=== PATIENT | female | born 1985 | race Caucasian/White ===

== ENCOUNTER 2023-07-26 17:52 | Observation (INO) | payer SELFPAY ==
[2023-07-26] VITALS (13 sets, daily range): BP systolic 103–149; BP diastolic 69–86; PULSE 77–107; RESP 16–19; TEMP 36.4–36.8; O2SAT 96–100; BMI 40.3; BMI 35.5
--- NOTE | 2023-07-26 18:48 | USR_ITS ---
PROCEDURE INFORMATION: Exam: US Pelvis, Transvaginal Exam date and time: 07/26/2023 7:03 PM Age: 37 years old Clinical indication: Other: Bleeding; Additional info: Vaginal bleeding TECHNIQUE: Imaging protocol: Real-time transvaginal pelvic ultrasound with image documentation. Transvaginal imaging was used for better evaluation of the endometrium, adnexa, and/or cervix. COMPARISON: No relevant prior studies available. FINDINGS: Uterus: Uterus measures 9.58 cm x 5.71 cm x 5.33 cm. Endometrial stripe prominent at 12 mm, may be related to menstrual status. Cervix: Cervical nabothian cysts. Right ovary/adnexa: Right ovary 18 mm cyst, likely follicular in nature with color blood flow in the right ovary. Left ovary/adnexa: Left ovary prominent 6 mm cyst, likely follicular in nature with color blood flow in the left ovary. Intraperitoneal space: No free fluid. US/US transvaginal [id number] IMPRESSION: 1. Right ovary 18 mm cyst, likely follicular in nature with color blood flow in the right ovary. 2. Left ovary prominent 6 mm cyst, likely follicular in nature with color blood flow in the left ovary. 3. Endometrial stripe prominent at 12 mm, may be related to menstrual status. 4. Cervical nabothian cysts.
[2023-07-26 18:53] LABS: Basophils # 0.1 10^3/uL (0.0-0.1); Basophils % 0.7 %; Eosinophils # 0.2 10^3/uL (0.0-0.8); Eosinophils % 1.9 %; Hematocrit 22.2 % (36-47); Lymphocytes # 3.1 10^3/uL (0.8-4.8); Lymphocytes % 28.1 %; Mean Corpuscular HGB Conc 32.4 g/dL (30-55); Mean Corpuscular Hemoglobin 28.9 pg (27-33); Mean Corpuscular Volume 89.2 fl (85-98); Mean Platelet Volume 10.8 fL (7.4-10.4); Monocytes # 0.6 10^3/uL (0.2-0.9); Monocytes % 5.1 %; Neutrophils # 7.05 10^3/uL (1.8-7.7); Neutrophils % 63.7 %; Nucleated Red Blood Cells % 0.2 %; Platelet Count 466 10^3/cmm (157-399); Red Blood Count 2.49 10^6/uL (3.85-5.65); Red Cell Distribution Width 13.2 % (12.1-15.1); White Blood Count 11.07 10^3/uL (3.29-11.43)
[2023-07-26] MEDS: sodium chloride 0.9% 1,000 ML 999 ML IV (19:18)
[2023-07-26 19:19] LABS: INR 0.94 (0.8-1.2)
[2023-07-26 19:20] LABS: HCG, Serum Qual Negative (Negative)
[2023-07-26 19:29] LABS: Alanine Aminotransferase 21 U/L (0-33); Albumin Level 3.9 g/dL (3.5-5.2); Alkaline Phosphatase 136 U/L (35-105); Anion Gap 9.5 (5-19); Aspartate Amino Transferase 22 U/L (0-32); Blood Urea Nitrogen 10 mg/dL (6-20); Calcium 9.6 mg/dL (8.5-10.5); Carbon Dioxide 27 mmol/L (22-29); Chloride 104 mmol/L (98-107); Creatinine Clr Calc Pharmacy 108.2937; Globulin 3.1 g/dL (1.3-4.6); Glomerular Filtration Rate 70.1 mL/min (90-130); Glucose 85 mg/dL (65-115); Osmolality Calculated 282 mOsm/kg (285-295); Potassium 3.5 mmol/L (3.5-5.1); Sodium 137 mmol/L (136-145); Total Bilirubin 0.3 mg/dL (0.15-1.2)
--- NOTE | 2023-07-26 19:44 | W.ED.FEMALGU ---
HPI - Female Genitourinary General: Chief complaint: Vaginal Bleeding Stated complaint: sent from [facility] Time Seen by Provider: 07/26/23 18:28 History of Present Illness: 37-year-old female with a history of vaginal bleeding. She has had brisk vaginal bleeding for 23 days straight she says. She has begun to get quite short of breath, today she had palpitations. Some chest pressure. She is normally quite fit. She was seen in urgent care and told to come here because of her low blood count that is symptomatic. She does not believe she is . On her last period, she bled for 14 days she says. She denies fever. She is not vomiting. No other discharge. She has not had any other problems with bleeding from other places. Associated symptoms: Deny abdominal pain, nausea or vaginal discharge Review of Systems Const: Denies: fever(s) Card: Reports: chest pain and palpitations Resp: Reports: dyspnea; Denies: productive cough or non-productive cough GI: Denies: abdominal pain, nausea or vomiting : Reports: vaginal bleeding; Denies: flank pain, difficulty voiding, dysuria or vaginal discharge Musc: Denies: back pain Physical Exam Const: COMMON NORMALS: no acute distress GENERAL APPEARANCE: cooperative; not ill appearing and not frail appearing HENMT: COMMON NORMALS: normocephalic, atraumatic and Normal external nose present HEAD & SCALP: normocephalic and atraumatic FACE & SINUS: normal facial exam and face symmetric NOSE: Normal external nose present Eye: COMMON NORMALS: Equal, round and reactive pupils present and EOMs intact bilaterally PUPIL: Yes Equal, round and reactive pupils present Neck/C-Spine: GENERAL: Yes trachea midline Chest: CHEST: Yes Symmetrical chest wall rise Resp: COMMON NORMALS: normal respiratory effort, No retractions, No use of accessory muscles and clear to auscultation bilaterally AUSCULTATION: clear to auscultation bilaterally Cardio: COMMON NORMALS: regular rhythm RATE: tachycardic RHYTHM: regular rhythm GI: COMMON NORMALS: Normal to inspection, nondistended, normoactive bowel sounds present Extremity: COMMON NORMALS: no pedal edema Neuro: BRIAN COMA SCALE: document GCS findings Armstrong coma scale eye opening: Spontaneous Armstrong coma scale verbal response: Orientated Armstrong coma scale motor response: Obey commands Brian coma scale total score: 15 SENSORY EXAM: Yes extremities (intact) Psych: COMMON NORMALS: speech normal SPEECH: Yes normal speech Skin: COMMON NORMALS: no rashes or lesions noted GENERAL SKIN EXAM: no rashes or lesions noted Course Vital Signs: Vital signs: Vital Signs Temperature 98.0 F 07/26/23 18:10 Pulse Rate 100 07/26/23 20:01 Respiratory Rate 19 H 07/26/23 20:01 Blood Pressure 149/79 07/26/23 20:01 Pulse Oximetry 98 07/26/23 20:01 Oxygen Delivery Me thod Room Air 07/26/23 20:01 MDM - Female Medical Decision Making Hemoglobin is 7.2. She is tachycardic and symptomatic. BMP is normal. Ultrasound of the pelvis is pending. Ultrasound shows a thickened endometrial stripe, but no other abnormalities. The patient is very symptomatic. Her hemoglobin is 7. She is tachycardic. Spoke with gynecology. Will observe. Transfused 2 units of packed cells. He will use IV Premarin to abort her bleeding. He has seen the patient in the ER. Lab Data 07/26/23 18:39 07/26/23 18:39 Laboratory Results WBC 11.07 10^3/uL (3.29-11.43) 07/26/23 18:39 RBC 2.49 10^6/uL (3.85-5.65) L 07/26/23 18:39 Hgb 7.20 g/dL (11.27-16.99) L 07/26/23 18:39 Hct 22.2 % (36-47) L 07/26/23 18:39 MCV 89.2 fl (85-98) 07/26/23 18:39 MCH 28.9 pg (27-33) 07/26/23 18:39 MCHC 32.4 g/dL (30-55) 07/26/23 18:39 RDW 13.2 % (12.1-15.1) 07/26/23 18:39 Plt Count 466 10^3/cmm (157-399) H 07/26/23 18:39 MPV 10.8 fL (7.4-10.4) H 07/26/23 18:39 Neut % (Auto) 63.7 % 07/26/23 18:39 Lymph % (Auto) 28.1 % 07/26/23 18:39 [place] % (Auto) 5.1 % 07/26/23 18:39 Eos % (Auto) 1.9 % 07/26/23 18:39 Baso % (Auto) 0.7 % 07/26/23 18:39 Neut # (Auto) 7.05 10^3/uL (1.8-7.7) 07/26/23 18:39 Lymph # (Auto) 3.1 10^3/uL (0.8-4.8) 07/26/23 18:39 [place] # (Auto) 0.6 10^3/uL (0.2-0.9) 07/26/23 18:39 Eos # (Auto) 0.2 10^3/uL (0.0-0.8) 07/26/23 18:39 Baso # (Auto) 0.1 10^3/uL (0.0-0.1) 07/26/23 18:39 Nucleated RBC % (auto) 0.2 % 07/26/23 18:39 Nucleated RBCs # 0.0 /100WBC 07/26/23 18:39 PT 12.90 SECONDS (12.1-14.9) 07/26/23 18:39 INR 0.94 (0.8-1.2) 07/26/23 18:39 Sodium 137 mmol/L (136-145) 07/26/23 18:39 Potassium 3.5 mmol/L (3.5-5.1) 07/26/23 18:39 Chloride 104 mmol/L (98-107) 07/26/23 18:39 Carbon Dioxide 27 mmol/L (22-29) 07/26/23 18:39 Anion Gap 9.5 (5-19) 07/26/23 18:39 BUN 10 mg/dL (6-20) 07/26/23 18:39 Creatinine 0.9 mg/dL (0.5-0.9) 07/26/23 18:39 GFR Calculation 70.1 mL/min (90-130) L 07/26/23 18:39 Glucose 85 mg/dL (65-115) 07/26/23 18:39 Calculated Osmolality 282 mOsm/kg (285-295) L 07/26/23 18:39 Calcium 9.6 mg/dL (8.5-10.5) 07/26/23 18:39 Total Bilirubin 0.3 mg/dL (0.15-1.2) 07/26/23 18:39 AST 22 U/L (0-32) 07/26/23 18:39 ALT 21 U/L (0-33) 07/26/23 18:39 Alkaline Phosphatase 136 U/L (35-105) H 07/26/23 18:39 Total Protein 7.0 g/dL (6.6-8.7) 07/26/23 18:39 Albumin 3.9 g/dL (3.5-5.2) 07/26/23 18:39 Globulin 3.1 g/dL (1.3-4.6) 07/26/23 18:39 HCG, Qual Negative (Negative) 07/26/23 18:39 Blood Type O Positive 07/26/23 18:38 Rho(D) Type Rh positive 07/26/23 18:38 Antibody Screen Negative 07/26/23 18:38 Crossmatch See Detail 07/26/23 18:38 All radiology interpretation(s) finalized by discharge Discharge Plan Discharge Patient Disposition: Placed in Observation Clinical Impression: Vaginal bleeding, Profound anemia Condition: Stable Prescriptions: No Action No Known Home Medications Coding Level of Care Code ED Back Shoe Operator for Lida Velazquez
--- NOTE | 2023-07-26 19:47 | ECG_ITS ---
[facility] Test Date: 2023-07-26 Pat Name: Shilpi Hood Department: Room: Gender: Female Small Package And Bundle Sorter Clerk: : 1985 Requested By: Lester Vargas Order Number: [id number] Avalos MD: Sergio Chance M.D. Measurements Intervals [place] Rate: 90 P: 57 ND: 185 QRS: 18 QRSD: 85 T: 30 QT: 350 QTc: 430 Interpretive Statements SINUS RHYTHM LOW QRS VOLTAGE IN PRECORDIAL LEADS [QRS DEFLECTION < 1.0 mV IN CHEST LEADS] POSSIBLE ANTERIOR MYOCARDIAL INFARCTION , PROBABLY OLD [30 ms Q WAVE IN V3/V4, OR R < 0.2 mV IN V4] No previous ECG available for comparison Electronically Signed On 07-27-2023 8:47:33 TRAINING ENGINEER by Sergio Chance M.D. [email or web address]
[2023-07-26] MEDS: acetaminophen 325 mg Tablet 650 MG PO (20:47)
[2023-07-26] MEDS: diphenhydrAMINE 25 mg Capsule PO (20:47)
--- NOTE | 2023-07-26 22:45 | P.HP_ITS ---
Providers/Chief Complaint 2 Admitting Physician: Joe Caal MD Primary EXPLOSIVE OPERATOR SUPERVISOR: Joe Caal MD Chief Complaint: sent from [facility] EXPLOSIVE OPERATOR SUPERVISOR History of Present Illness 37 y.o. No control Periods have always been irregular Usually lasting 5-8 days when they occur, extremely heavy Began to have bleeding July 03, 2023 Was bleeding heavily for 23 days, with large clots Presented to ER because she was feeling weak with palpitations Last finishing trimmer exam was 11 years ago PMHx: none PSHx: deviated nasal septum Meds: none SHx: never smoked NKDA Medications/Allergies Home Medications Medication Instructions Recorded Confirmed Last Taken Type No Known Home Medications 07/26/23 07/26/23 Unknown History Allergies Allergy/AdvReac Type Severity Reaction Status Date / Time coconut Allergy ALGY-Swell Verified 07/26/23 23:27 Lip/Tongue/Throat Vitals/I&O/Wt Last Vital Signs Temp 97.5 F L 07/26/23 22:17 Pulse 88 07/26/23 22:17 Resp 18 07/26/23 22:17 BP 143/85 07/26/23 22:17 Pulse Ox 100 07/26/23 22:17 O2 Del Method Room Air 07/26/23 23:01 07/26/23 07/26/23 07/27/23 14:59 22:59 06:59 Intake Total 1124 / 1124 Balance 1124 / 1124 Weight last 48 hrs Weight 220 lb Weight 250 lb Physical Exam 2 Narrative: Weight 220 lbs; 5?6? Afebrile Comfortable, awake, alert Lungs: clear Cor: mild tachycardia Abd: soft, nontender Ext: normal Data 07/26/23 18:39 07/26/23 18:39 Results Labs OB ([facility]): 2 Blood Type O Positive 07/26/23 Antibody Screen Negative 07/26/23 Hct 22.2 % (36-47) L 07/26/23 Hgb 7.20 g/dL (11.27-16.99) L 07/26/23 Rho(D) Type Rh positive 07/26/23 Plt Count 466 10^3/cmm (157-399) H 07/26/23 HCG, Qual Negative (Negative) 07/26/23 REGISTERED NURSE SURGICAL SERVICES Ultrasound Pelvic sono 07-26-23 uterus 10 cm x 5.7 x 5.3 Endometrium 1.2 cm Normal ovaries A&P Assessment and plan (1) Vaginal bleeding: Abnormal uterine bleeding, heavy/irregular bleeding Severe anemia Patient symptomatic due to anemia with weakness and palpitations Plan admit for observation Plan transfuse 2 U PRBCs Plan either Premarin IV or combined OCs if continues to bleed Plan repeat Hgb after transfusions (2) Profound anemia: Attestations 2 Medical Necessity Statement*: patient with heavy uterine bleeding and severe anemia, admit for transfusions Coding Level of Care Code Acute Code for Chg Fwd Diagnoses Vaginal bleeding N93.9 Profound anemia D64.9 Time Spent (min) 60
[2023-07-27] MEDS: dextrose 5%-lactated ringers 1,000 ML 125 ML IV (00:13)
[2023-07-27 00:55] VITALS: BP 125/82; PULSE 92; RESP 16; TEMP 36.8; O2SAT 97
[2023-07-27 04:20] VITALS: BP 104/72; PULSE 78; RESP 17; TEMP 36.5; O2SAT 96
[2023-07-27 10:15] VITALS: BP 119/75; PULSE 72; RESP 16; TEMP 36.4
--- NOTE | 2023-07-27 15:10 | P.PN_ITS ---
PRODUCT SAFETY LEAD Subjective 2 Subjective: Interval history: Patient states she is feeling much better No further vaginal bleeding No weakness, dizziness Eating, ambulating well Vitals/I&O/Wt Last Vital Signs Temp 97.6 F 07/27/23 10:15 Pulse 72 07/27/23 10:15 Resp 16 07/27/23 10:15 BP 119/75 07/27/23 10:15 Pulse Ox 96 07/27/23 04:20 O2 Del Method Room Air 07/27/23 04:20 Physical Exam 2 Narrative: Comfortable, awake, alert Afebrile, VS normal Abd: soft, nontender Ext: normal Hgb this a.m. 8.7 Data 07/27/23 04:20 07/26/23 18:39 A&P Assessment and plan (1) Abnormal uterine bleeding: Abnormal uterine bleeding, heavy/irregular bleeding Severe anemia s/p transfusion of 2 U PRBCs started on OCs bleeding much improved plan discharge to home today continue OCs f/u in one week call / return if weakness, dizziness, vaginal bleeding Attestations 2 Medical Necessity Statement*: patient admitted with heavy vaginal bleeding and symptomatic severe anemia, improved with transfusion, plan discharge to home today Coding Level of Care Code Acute Code for Chg Fwd Diagnoses Abnormal uterine bleeding N93.9 Time Spent (min) 20
--- NOTE | 2023-07-27 15:15 | PM.OBGYDC ---
Discharge Providers PLASTIC HOSPITAL PRODUCTS ASSEMBLER Date of Admission: 07/26/23 21:07 Date of Discharge: 07/27/23 Attending Provider at Admission: Joe Caal MD Attending Provider at Discharge: Joe Caal MD Consults: none Primary PLASTIC HOSPITAL PRODUCTS ASSEMBLER: Joe Caal MD Diagnoses at Discharge Discharge Diagnosis (1) Abnormal uterine bleeding: Details from hospital stay: patient admitted with h/o heavy vaginal bleeding and symptomatic severe anemia patient was given 2 U PRBC transfusion and started on OCs patient improved overnight with no further bleeding and no further c/o weakness and dizziness She was discharged to home on July 27, 2023 Status: Acute Reason for Visit Reason for Visit: sent from [facility] Brief History: 37 y.o. with h/o heavy uterine bleeding and dizziness and weakness Physical Exam Narrative: Comfortable, awake, alert Afebrile, VS normal Abd: soft, nontender Ext: normal History History History 2 Term 2 0 Miscarriages/Ectopic 0 Living Children 2 Discharge Data Studies Completed and Pending Completed Studies During Hospitalization Category Date Time Status US transvaginal 16465 Stat Ultrasound 07/26/23 18:48 Completed Radiology Impressions Transvaginal US 07/26/23 18:48 IMPRESSION: 1. Right ovary 18 mm cyst, likely follicular in nature with color blood flow in the right ovary. 2. Left ovary prominent 6 mm cyst, likely follicular in nature with color blood flow in the left ovary. 3. Endometrial stripe prominent at 12 mm, may be related to menstrual status. 4. Cervical nabothian cysts. Laboratory Results WBC 11.07 10^3/uL (3.29-11.43) 07/26/23 18:39 RBC 2.49 10^6/uL (3.85-5.65) L 07/26/23 18:39 Hgb 8.70 g/dL (11.27-16.99) L 07/27/23 04:20 Hct 22.2 % (36-47) L 07/26/23 18:39 MCV 89.2 fl (85-98) 07/26/23 18:39 MCH 28.9 pg (27-33) 07/26/23 18:39 MCHC 32.4 g/dL (30-55) 07/26/23 18:39 RDW 13.2 % (12.1-15.1) 07/26/23 18:39 Plt Count 466 10^3/cmm (157-399) H 07/26/23 18:39 MPV 10.8 fL (7.4-10.4) H 07/26/23 18:39 Neut % (Auto) 63.7 % 07/26/23 18:39 Lymph % (Auto) 28.1 % 07/26/23 18:39 [place] % (Auto) 5.1 % 07/26/23 18:39 Eos % (Auto) 1.9 % 07/26/23 18:39 Baso % (Auto) 0.7 % 07/26/23 18:39 Neut # (Auto) 7.05 10^3/uL (1.8-7.7) 07/26/23 18:39 Lymph # (Auto) 3.1 10^3/uL (0.8-4.8) 07/26/23 18:39 [place] # (Auto) 0.6 10^3/uL (0.2-0.9) 07/26/23 18:39 Eos # (Auto) 0.2 10^3/uL (0.0-0.8) 07/26/23 18:39 Baso # (Auto) 0.1 10^3/uL (0.0-0.1) 07/26/23 18:39 Nucleated RBC % (auto) 0.2 % 07/26/23 18:39 Nucleated RBCs # 0.0 /100WBC 07/26/23 18:39 PT 12.90 SECONDS (12.1-14.9) 07/26/23 18:39 INR 0.94 (0.8-1.2) 07/26/23 18:39 Sodium 137 mmol/L (136-145) 07/26/23 18:39 Potassium 3.5 mmol/L (3.5-5.1) 07/26/23 18:39 Chloride 104 mmol/L (98-107) 07/26/23 18:39 Carbon Dioxide 27 mmol/L (22-29) 07/26/23 18:39 Anion Gap 9.5 (5-19) 07/26/23 18:39 BUN 10 mg/dL (6-20) 07/26/23 18:39 Creatinine 0.9 mg/dL (0.5-0.9) 07/26/23 18:39 GFR Calculation 70.1 mL/min (90-130) L 07/26/23 18:39 Glucose 85 mg/dL (65-115) 07/26/23 18:39 Calculated Osmolality 282 mOsm/kg (285-295) L 07/26/23 18:39 Calcium 9.6 mg/dL (8.5-10.5) 07/26/23 18:39 Total Bilirubin 0.3 mg/dL (0.15-1.2) 07/26/23 18:39 AST 22 U/L (0-32) 07/26/23 18:39 ALT 21 U/L (0-33) 07/26/23 18:39 Alkaline Phosphatase 136 U/L (35-105) H 07/26/23 18:39 Total Protein 7.0 g/dL (6.6-8.7) 07/26/23 18:39 Albumin 3.9 g/dL (3.5-5.2) 07/26/23 18:39 Globulin 3.1 g/dL (1.3-4.6) 07/26/23 18:39 HCG, Qual Negative (Negative) 07/26/23 18:39 Blood Type O Positive 07/26/23 18:38 Rho(D) Type Rh positive 07/26/23 18:38 Antibody Screen Negative 07/26/23 18:38 Crossmatch See Detail 07/26/23 18:38 Procedures Performed PRBC transfusions x two units Vitals Last Vital Signs Temp 97.6 F 07/27/23 10:15 Pulse 72 07/27/23 10:15 Resp 16 07/27/23 10:15 BP 119/75 07/27/23 10:15 Pulse Ox 96 07/27/23 04:20 O2 Del Method Room Air 07/27/23 04:20 Results Labs OB ([facility]): Blood Type O Positive 07/26/23 Antibody Screen Negative 07/26/23 Hct 22.2 % (36-47) L 07/26/23 Hgb 8.70 g/dL (11.27-16.99) L 07/27/23 Rho(D) Type Rh positive 07/26/23 Plt Count 466 10^3/cmm (157-399) H 07/26/23 HCG, Qual Negative (Negative) 07/26/23 TRAINING SPECIALIST Ultrasound Pelvic sono 24 uterus 10 cm x 5.7 x 5.3 Endometrium 1.2 cm Normal ovaries Discharge Plan Discharge Patient Disposition: Home Condition: Stable Prescriptions: New norethindrone-ethin estradiol 1-35 mg-mcg tablet 1 tab PO DAILY Qty: 84 0RF ferrous sulfate 325 mg (65 mg iron) tablet,delayed release (DR/EC) 325 mg PO DAILY Qty: 30 12RF Discharge Orders: Discharge Order (Routine); Ordered 07/27/23 Ordered By: Joe Caal Referrals: Joe Caal MD [Physician] - 08/14/23 7:45 am Discharge Diet: Usual diet Discharge Activity: Resume usual activity Patient Instructions: Anemia, Estradiol/Norethindrone (By mouth) (Activella, Lopreeza, Brendon, Alenavey Lo), Abnormal (Dysfunctional) Uterine Bleeding (GEN), Opioid Safety Discharge Attestations PLASTIC HOSPITAL PRODUCTS ASSEMBLER Time Spent in Discharge Care*: less than 30 min Coding Level of Care Code Acute Code for Chg Fwd Diagnoses Abnormal uterine bleeding N93.9 Time Spent (min) 20
== END 2023-07-27 10:20 | disposition home or self-care (01) ==
LOC: ER 21:39 → OBGYN 21:49
PROVIDERS: Emergency Medicine; Admitting Provider Obstetrics & Gynecology; Emergency Provider Emergency Medicine; Visit Provider Obstetrics & Gynecology
DX: N93.9 Abnormal uterine and vaginal bleeding, unspecified (principal); D64.9 Anemia, unspecified
CPT/HCPCS: 36415; 36430; 76830; 80053; 84703; 85018; 85025; 85610; 86850; 86900; 86920; 93005; 96360; 96361; 99285; G0378; J7030; J7121; P9016